=== PATIENT | female | born 1980 | race Two or more races ===

== ENCOUNTER 2018-12-15 08:14 | Emergency (ER) | payer SELFPAY ==
[~2018-12-15] VITALS: Ht 165.1 cm; Wt 84.1 kg
[2018-12-15] MEDS ORDERED: PERTUSS(ACELL),DIPH,TET VAC/PF 0.5 ML VIAL IM ONE (09:00)
[2018-12-15] MEDS ORDERED: BACITRACIN 0.9 GM PACKET OINTMENT TP ONE (09:00)
[2018-12-15 09:09] VITALS: BP 143/78
== END 2018-12-15 09:14 | disposition home or self-care (01) ==
LOC: EMS 08:15
DX: S61.431A Puncture wound without foreign body of right hand, initial encounter (principal); Z88.0 Allergy status to penicillin; W45.8XXA Other foreign body or object entering through skin, initial encounter; Y93.89 Activity, other specified; Y92.89 Other specified places as the place of occurrence of the external cause; Y99.8 Other external cause status
CPT/HCPCS: 90471; 90715